=== PATIENT | male | born 1960 | race Caucasian/White ===

== ENCOUNTER 2017-06-18 10:40 | Emergency (ER) | payer OTHER ==
[2017-06-18] MEDS ORDERED: LET GEL TOPICAL 1 EA SYR TP ONE (12:08)
[2017-06-18] MEDS ORDERED: TDAP ADULT 0.5 ML INJ (BOOSTRIX) IM ONE (13:31)
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
[2017-06-18] MEDS ORDERED: IBUPROFEN 600 MG TAB PO ONE (13:44)
[2017-06-18 13:53] VITALS: BP 130/83
== END 2017-06-18 14:00 | disposition home or self-care (01) ==
DX: S09.90XA Unspecified injury of head, initial encounter (principal); S16.1XXA Strain of muscle, fascia and tendon at neck level, initial encounter; Z23 Encounter for immunization; W01.198A Fall on same level from slipping, tripping and stumbling with subsequent striking against other object, initial encounter; Y92.89 Other specified places as the place of occurrence of the external cause; Y99.8 Other external cause status; Y93.39 Activity, other involving climbing, rappelling and jumping off

== ENCOUNTER 2018-03-20 15:24 | Emergency (ER) | payer OTHER ==
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
[2018-03-20] MEDS ORDERED: CEPHALEXIN 500 MG CAP PO ONE (16:39)
[2018-03-20 16:54] VITALS: BP 111/84
== END 2018-03-20 16:54 | disposition home or self-care (01) ==
PROC: 0HQKXZZ Repair Right Lower Leg Skin, External Approach (ICD-10-PCS; principal; 2018-03-20)
DX: S81.811A Laceration without foreign body, right lower leg, initial encounter (principal); M17.11 Unilateral primary osteoarthritis, right knee; W15.XXXA Fall from cliff, initial encounter; Y92.9 Unspecified place or not applicable; Y99.9 Unspecified external cause status; Y93.55 Activity, bike riding
CPT/HCPCS: L1830